=== PATIENT | male | born 1945 | race Caucasian/White ===

== ENCOUNTER 2016-12-26 20:23 | Emergency (ER) | payer MEDICARE, OTHER ==
[~2016-12-26] VITALS: Ht 182.9 cm; Wt 150.0 kg
[2016-12-26] MEDS ORDERED: ONDANSETRON HCL 4 MG/2 ML VIAL IVP ONE (20:45)
[2016-12-26] MEDS ORDERED: SODIUM CHLORIDE 0.9% FLUSH 10 ML FLUSH IV FLUSH PRN (20:45)
[2016-12-26] MEDS ORDERED: MORPHINE SULFATE 8 MG/ML INJ IV PUSH ONE (20:45)
--- NOTE | 2016-12-26 20:48 | PD ---
HPI Chief Complaint: Abdominal Pain Time Seen by Provider: 20:35 (Reinier Lynne) Time Seen by Provider: 20:49 (Shaylee Warren MD) Travel History International Travel<30 days: No Contact w/Intl Traveler<30days: No Traveled to known affect area: No (Reinier Lynne) History of Present Illness HPI 71-year-old male who is currently on vacation from [place], history of diabetes and hypertension, presents via EMS for evaluation of abdominal pain. He reports that for the past month he has had intermittent sharp pains on the right side of his abdomen lateral to the umbilicus. He reports that the pain became much severe over the past hour and this prompted evaluation. Pain comes and goes. He denies any flank pain, hematuria, testicular or scrotal pain, nausea or vomiting, diarrhea or constipation, chest pain or shortness of breath , fevers or chills. Denies any history of abdominal surgeries in the past. He has no other complaints at this time. (Reinier Lynne) [facility] Past Medical History Diabetes: Yes Patient Takes Glucophage: No Hypertension: Yes ?: Not (Reinier Lynne) Social History Alcohol Use: No Tobacco Use: No Substance Use: No (Reinier Lynne) Allergies-Medications (Allergen,Severity, Reaction): Coded Allergies: No Known Allergies (Unverified , 12/26/16) Reported Meds & Prescriptions Reported Meds & Active Scripts Active Percocet (Oxycodone-Acetaminophen) 5-325 mg Tab 1 Tab PO Q8HR NEB PRN Zofran (Ondansetron HCl) 4 Mg Tab 4 Mg PO Q8HR PRN Reported Losartan (Losartan Potassium) 100 Mg Tab 100 Mg PO DAILY Glipizide XL (Glipizide) 10 Mg Noelle 10 Mg PO DAILY Take with breakfast or first main meal of the day Janumet (Sitagliptin-Metformin) 50-500 Mg Tab 2 Tab PO HS (Shaylee Warren MD) Review of Systems Except as stated in HPI: all other systems reviewed are Neg (Reinier Lynne) Physical Exam Narrative GENERAL: This is a obese male who is in no acute distress. SKIN: Warm and dry. HEAD: Atraumatic. Normocephalic. EYES: Pupils equal and round. No scleral icterus. No injection or drainage. ENT: No nasal bleeding or discharge. Mucous membranes pink and moist. NECK: Trachea midline. No JVD. CARDIOVASCULAR: Regular rate and rhythm. No murmur appreciated. RESPIRATORY: No accessory muscle use. Clear to auscultation. Breath sounds equal bilaterally. GASTROINTESTINAL: Abdomen soft, some tenderness to palpation to the right side of the abdomen lateral to the umbilicus. There is no tenderness to palpation in the right lower quadrant over McBurney's point. There is no right upper quadrant tenderness. There is no guarding or palpable masses. No CVA tenderness. MUSCULOSKELETAL: No obvious deformities. No edema. NEUROLOGICAL: Awake and alert. No obvious cranial nerve deficits. Motor grossly within normal limits. Normal speech. PSYCHIATRIC: Appropriate mood and affect; insight and judgment normal. (Reinier Lynne) Data Data Last Documented VS Vital Signs Date Time Temp Pulse Resp B/P Pulse Ox O2 Delivery O2 Flow Rate FiO2 12/26/16 23:23 71 18 144/68 98 12/26/16 21:08 97.8 (Shaylee Warren MD) Orders Complete Blood Count With Diff (12/26/16 20:44) Comprehensive Metabolic Panel (12/26/16 20:44) Lipase (12/26/16 20:44) Urinalysis - C+S If Indicated (12/26/16 20:44) Ct Abd/Pel W Iv Contrast(Rout) (12/26/16 20:44) Iv Access Insert/Monitor (12/26/16 20:44) Ecg Monitoring (12/26/16 20:44) Oximetry (12/26/16 20:44) Ondansetron Inj (Zofran Inj) (12/26/16 20:45) Sodium Chloride 0.9% Flush (Ns Flush) (12/26/16 20:45) Electrocardiogram (12/26/16 20:44) Morphine Inj (Morphine Inj) (12/26/16 20:45) Ketorolac Inj (Toradol Inj) (12/26/16 22:45) Morphine Inj (Morphine Inj) (12/26/16 22:45) Sodium Chlor 0.9% 1000 Ml Inj (Ns 1000 M (12/26/16 22:35) Iohexol 350 Inj (Omnipaque 350 Inj) (12/26/16 22:42) Urine Culture (12/26/16 23:50) Ceftriaxone Inj (Rocephin Inj) (12/27/16 00:00) Blood Culture (12/26/16 23:56) Ciprofloxacin 400 Mg Premix (Cipro 400 M (12/27/16 00:00) Metronidazole 500 Mg Inj (Flagyl 500 Mg (12/27/16 00:00) (Shaylee Warren MD) Labs Laboratory Tests Test 12/26/16 12/26/16 21:22 23:16 White Blood Count 13.0 TH/MM3 Red Blood Count 5.54 MIL/MM3 Hemoglobin 15.2 GM/DL Hematocrit 45.8 % Mean Corpuscular Volume 82.7 FL Mean Corpuscular Hemoglobin 27.4 PG Mean Corpuscular Hemoglobin 33.1 % Concent Red Cell Distribution Width 15.5 % Platelet Count 243 TH/MM3 Mean Platelet Volume 9.0 FL Neutrophils (%) (Auto) % Lymphocytes (%) (Auto) % Monocytes (%) (Auto) % Eosinophils (%) (Auto) % Basophils (%) (Auto) % Neutrophils # (Auto) TH/MM3 Lymphocytes # (Auto) TH/MM3 Monocytes # (Auto) TH/MM3 Eosinophils # (Auto) TH/MM3 Basophils # (Auto) TH/MM3 CBC Comment AUTO DIFF Differential Total Cells 100 Counted Neutrophils % (Manual) 76 % Band Neutrophils % 1 % Lymphocytes % 15 % Monocytes % 6 % Eosinophils % 1 % Basophils % 1 % Neutrophils # (Manual) 10.0 TH/MM3 Differential Comment FINAL DIFF MANUAL Platelet Estimate NORMAL Platelet Morphology Comment NORMAL Red Cell Morphology Comment NORMAL Sodium Level 136 MEQ/L Potassium Level 4.2 MEQ/L Chloride Level 103 MEQ/L Carbon Dioxide Level 24.6 MEQ/L Anion Gap 8 MEQ/L Blood Urea Nitrogen 16 MG/DL Creatinine 1.25 MG/DL Estimat Glomerular Filtration 57 ML/MIN Rate Random Glucose 197 MG/DL Calcium Level 9.0 MG/DL Total Bilirubin 0.4 MG/DL Aspartate Amino Transf 19 U/L (AST/SGOT) Alanine Aminotransferase 25 U/L (ALT/SGPT) Alkaline Phosphatase 50 U/L Total Protein 7.8 GM/DL Albumin 3.6 GM/DL Lipase 145 U/L Urine Color YELLOW Urine Turbidity CLEAR Urine pH 5.5 Urine Specific [place] 1.045 Urine Protein TRACE mg/dL Urine Glucose (UA) 70 mg/dL Urine Ketones NEG mg/dL Urine Occult Blood NEG Urine Nitrite NEG Urine Bilirubin NEG Urine Urobilinogen LESS THAN 2.0 MG/DL Urine Leukocyte Esterase NEG Urine RBC LESS THAN 1 /hpf Urine WBC 1 /hpf Urine Squamous Epithelial <1 /hpf Cells Urine Bacteria RARE /hpf Urine Mucus FEW /lpf Microscopic Urinalysis Comment CULT NOT INDICATED (Shaylee Warren MD) [facility] Medical Decision Making Medical Screen Exam Complete: Yes Emergency Medical Condition: Yes Medical Record Reviewed: Yes Interpretation(s) EKG CBC CMP Lipase Urinalysis CT abdomen and pelvis Differential Diagnosis Abdominal hernia, appendicitis, obstruction, colitis, renal stone, mesenteric ischemia Narrative Course 71-year-old male on vacation from [place] with history of diabetes and hypertension presents with intermittent sharp pain in the right side of his abdomen for the past month, much worse over the past hour. On examination he has some tenderness to palpation lateral to the umbilicus in the right side of his abdomen. There are no palpable masses. He is somewhat obese with a BMI of 44.8. Plan is for basic lab work, EKG, ECG monitor and pulse oximetry, CT abdomen and pelvis. He will be Given IV morphine and Zofran. The patient's CT reveals no acute abnormalities, he does have diverticulosis. He feels improved after the second dose of morphine. At the end of my shift the urinalysis is pending, he is signed out to my attending to follow up on the urinalysis results, likely discharge home. (Reinier Lynne) Medical Screen Exam Complete: Yes Emergency Medical Condition: Yes Medical Record Reviewed: Yes Interpretation(s) CT scan of the abdomen and pelvis is negative for obstruction appendicitis kidney stone and evidence of diverticulosis UA shows rare blurred was negative for protein and leukocytes and nitrites Differential Diagnosis Differential diagnosis bacteriuria flank pain kidney stone appendicitis colitis diverticular disease obstruction constipation Narrative Course This is a 71-year-old obese male who's had abdominal pain located on the right side intermittently for some time who had an episode of increased severe pain today more than a 10 out of 10 patient hydrated with normal saline and given morphine and Zofran CTed of the abdomen and pelvis negative for stone structuring constipation (appendicitis colitis there was evidence of diverticulosis She is afebrile and nontoxic in appearance there is a leukocytosis of 13,000 Nae states he is pain free and is resting comfortably patient continued to be pain-free during the rest of the ED stay To the presence of diverticulosis and no other findings on CT scan and no evidence of bacteriuria gave patient a dose of Cipro and Flagyl patient to be on a clear liquid diet for 24 hours then to advance diet as tolerated Discharge home with Cipro and Flagyl and Percocet and Zofran able to tolerate oral intake to be discharged with follow-up with gastroenterology for colonoscopy and upper endoscopy and further management. ( Shaylee Warren MD) Procedures EKG Prior to Arrival: Yes (Reinier Lynne) Diagnosis Primary Impression: Abdominal pain Additional Impressions: Bacteria in urine leukocytosis Referrals: Faith Richard MD Patient Instructions: Clear Liquid Diet (DC), General Instructions, Narcotic given in the ED Additional Instructions: Stay well hydrated Clear liquid diet for 24 hours Take Percocet as needed for pain Take Zofran as needed for nausea Finished antibiotic With the addictions recovery specialist for further evaluation and colonoscopy Return if the pain reoccurred despite pain medicine for her vomiting decreased appetite bloody vomiting no blood in the stool Scripts Metronidazole (Flagyl)500 Mg [id number] Mg PO TID 10 Days Ref 0 Prov:Shaylee Warren MD 12/27/16 Ciprofloxacin (Cipro)500 Mg [id number] Mg PO BID 10 Days Ref 0 Prov:Shaylee Warren MD 12/27/16 Oxycodone-Acetaminophen (Percocet)5-325 mg Tab1 Tab PO Q8HR NEB PRN (PAIN) #15 TAB Ref 0 Prov:Shaylee Warren MD 12/27/16 Ondansetron (Zofran)4 Mg Tab4 Mg PO Q8HR PRN (NAUSEA OR VOMITING) #15 TAB Ref 0 Prov:Shaylee Warren MD 12/27/16 Disposition: 01 DISCHARGE HOME Reinier Lynne Dec 26, 2016 20:48 Shaylee Warren MD Dec 27, 2016 02:10 Platelet Morphology Comment NORMAL Red Cell Morphology Comment NORMAL Sodium Level 136 MEQ/L Potassium Level 4.2 MEQ/L Chloride Level 103 MEQ/L Carbon Dioxide Level 24.6 MEQ/L Anion Gap 8 MEQ/L Blood Urea Nitrogen 16 MG/DL Creatinine 1.25 MG/DL Estimat Glomerular Filtration 57 ML/MIN Rate Random Glucose 197 MG/DL Calcium Level 9.0 MG/DL Total Bilirubin 0.4 MG/DL Aspartate Amino Transf 19 U/L (AST/SGOT) Alanine Aminotransferase 25 U/L (ALT/SGPT) Alkaline Phosphatase 50 U/L Total Protein 7.8 GM/DL Albumin 3.6 GM/DL Lipase 145 U/L (Reinier Lynne) [facility] Medical Decision Making Medical Screen Exam Complete: Yes Emergency Medical Condition: Yes Medical Record Reviewed: Yes Interpretation(s) EKG CBC CMP Lipase Urinalysis CT abdomen and pelvis Differential Diagnosis Abdominal hernia, appendicitis, obstruction, colitis, renal stone, mesenteric ischemia Narrative Course 71-year-old male on vacation from [place] with history of diabetes and hypertension presents with intermittent sharp pain in the right side of his abdomen for the past month, much worse over the past hour. On examination he has some tenderness to palpation lateral to the umbilicus in the right side of his abdomen. There are no palpable masses. He is somewhat obese with a BMI of 44.8. Plan is for basic lab work, EKG, ECG monitor and pulse oximetry, CT abdomen and pelvis. He will be Given IV morphine and Zofran. The patient's CT reveals no acute abnormalities, he does have diverticulosis. He feels improved after the second dose of morphine. At the end of my shift the urinalysis is pending, he is signed out to my attending to follow up on the urinalysis results, likely discharge home. (Reinier Lynne) Medical Screen Exam Complete: Yes Emergency Medical Condition: Yes Medical Record Reviewed: Yes Interpretation(s) CT scan of the abdomen and pelvis is negative for obstruction appendicitis kidney stone and evidence of diverticulosis UA shows rare blurred was negative for protein and leukocytes and nitrites Differential Diagnosis Differential diagnosis bacteriuria flank pain kidney stone appendicitis colitis diverticular disease obstruction constipation Narrative Course This is a 71-year-old obese male who's had abdominal pain located on the right side intermittently for some time who had an episode of increased severe pain today more than a 10 out of 10 patient hydrated with normal saline and given morphine and Zofran CTed of the abdomen and pelvis negative for stone structuring constipation (appendicitis colitis there was evidence of diverticulosis She is afebrile and nontoxic in appearance there is a leukocytosis of 13,000 Nae states he is pain free and is resting comfortably patient continued to be pain-free during the rest of the ED stay To the presence of diverticulosis and no other findings on CT scan and no evidence of bacteriuria gave patient a dose of Cipro and Flagyl patient to be on a clear liquid diet for 24 hours then to advance diet as tolerated Discharge home with Cipro and Flagyl and Percocet and Zofran able to tolerate oral intake to be discharged with follow-up with gastroenterology for colonoscopy and upper endoscopy and further management. ( Shaylee Warren MD) Procedures EKG Prior to Arrival: Yes (Reinier Lynne) Diagnosis Primary Impression: Abdominal pain Additional Impressions: Bacteria in urine leukocytosis Referrals: Faith Richard MD Patient Instructions: Clear Liquid Diet (DC), General Instructions, Narcotic given in the ED Additional Instructions: Stay well hydrated Clear liquid diet for 24 hours Take Percocet as needed for pain Take Zofran as needed for nausea Finished antibiotic With the addictions recovery specialist for further evaluation and colonoscopy Return if the pain reoccurred despite pain medicine for her vomiting decreased appetite bloody vomiting no blood in the stool Scripts Metronidazole (Flagyl)500 Mg [id number] Mg PO TID 10 Days Ref 0 Prov:Shaylee Warren MD 12/27/16 Ciprofloxacin (Cipro)500 Mg [id number] Mg PO BID 10 Days Ref 0 Prov:Shaylee Warren MD 12/27/16 Oxycodone-Acetaminophen (Percocet)5-325 mg Tab1 Tab PO Q8HR NEB PRN (PAIN) #15 TAB Ref 0 Prov:Shaylee Warren MD 12/27/16 Ondansetron (Zofran)4 Mg Tab4 Mg PO Q8HR PRN (NAUSEA OR VOMITING) #15 TAB Ref 0 Prov:Shaylee Warren MD 12/27/16 Disposition: 01 DISCHARGE HOME Reinier Lynne Dec 26, 2016 20:48 Shaylee Warren MD Dec 27, 2016 02:10
[2016-12-26 21:08] VITALS: BP 148/60; PULSE 80; RESP 18; TEMP 97.8; O2SAT 96
[2016-12-26] MEDS ORDERED: JANU50TA4 PO (21:32)
[2016-12-26] MEDS ORDERED: GLIP10TA67 PO (21:33)
[2016-12-26] MEDS ORDERED: LOSA100T PO (21:33)
[2016-12-26 22:04] LABS: HEMATOCRIT 45.8 % (39.0-51.0); MEAN CELL VOLUME 82.7 FL (80.0-100.0); MEAN CORPUSCULAR HEMOGLOBIN 27.4 PG (27.0-34.0); MEAN CORPUSCULAR HGB CONC 33.1 % (32.0-36.0); PLATELET COUNT 243 TH/MM3 (150-450); RED BLOOD COUNT 5.54 MIL/MM3 (4.50-5.90); RED CELL DISTRIBUTION WIDTH 15.5 % (11.6-17.2)
[2016-12-26 22:05] LABS: HEMO FLAGS AUTO DIFF
[2016-12-26 22:16] LABS: ALT (GPT) 25 U/L (12-78); ANION GAP 8 MEQ/L (5-15); AST (GOT) 19 U/L (15-37); BICARBONATE 24.6 MEQ/L (21.0-32.0); BLOOD UREA NITROGEN 16 MG/DL (7-18); CHLORIDE 103 MEQ/L (98-107); GLOMERULAR FILTRATION RATE 57 ML/MIN (>89); POTASSIUM 4.2 MEQ/L (3.5-5.1); SODIUM (NA) 136 MEQ/L (136-145)
[2016-12-26 22:18] LABS: ALKALINE PHOSPHATASE 50 U/L (45-117); TOTAL BILIRUBIN ADULT 0.4 MG/DL (0.2-1.0)
[2016-12-26] MEDS ORDERED: SODIUM CHLOR 0.9% 1000 ML INJ 1,000 ML IV SCH (22:35)
[2016-12-26] MEDS ORDERED: IOHEXOL 350 MG/ML 10 ML VIAL (for RAD DIAG) IV ONE (22:42)
[2016-12-26 22:45] LABS: BANDS 1 % (0-6); BASOPHILS 1 % (0-2); EOSINOPHILS 1 % (0-4); PLATELET ESTIMATE SMEAR NORMAL (NORMAL); PLATELET MORPHOLOGY NORMAL (NORMAL); POLYS (SEG NEUTROPHILS) 76 % (16-70); SCAN/DIFF FINAL DIFF MANUAL; WBC DIFF SAMPLE 100
[2016-12-26] MEDS ORDERED: KETOROLAC TROMETHAMINE 30 MG/ML (IVP) VIAL IV PUSH ONE (22:45)
[2016-12-26] MEDS ORDERED: MORPHINE SULFATE 4 MG/ML INJ IV PUSH ONE (22:45)
--- NOTE | 2016-12-26 22:54 | RADRPT ---
EXAM DATE/TIME: 12/26/2016 22:30 [place] COMPARISON: No previous studies available for comparison. INDICATIONS : Right lower quadrant pain. IV CONTRAST: 100 cc Omnipaque 350 (iohexol) IV ORAL CONTRAST: No oral contrast ingested. RADIATION DOSE: 38.88 CTDIvol (mGy) MEDICAL HISTORY : Hypertension. Diabetes. SURGICAL HISTORY : None. ENCOUNTER: Initial ACUITY: 1 month PAIN SCALE: 10/10 LOCATION: Right lower quadrant TECHNIQUE: Volumetric scanning of the abdomen and pelvis was performed. Using automated exposure control and ad justment of the mA and/or kV according to patient size, radiation dose was kept as low as reasonably achievable to obtain optimal diagnostic quality images. DICOM format image data is available electro nically for review and comparison. FINDINGS: Lung bases are clear. Diffuse fatty liver. Spleen, adrenals, kidneys pancreas unremarkable. No calcif ied gallstones or biliary ductal dilatation. There is colonic diverticulosis without evidence for diverticulitis. No bowel obstruction. No free ai r or free fluid. No acute bony abnormalities. 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 CONCLUSION: 1. No acute findings. Colonic diverticulosis without diverticulitis. Fatty infiltration of the liver. Appendix normal on CT. No obstructive uropathy. Papo Salvador MD on December 26, 2016 at 22:47 Board Certified Radiologist. This report was verified electronically.
[2016-12-26 23:23] VITALS: BP 144/68; PULSE 71; RESP 18; O2SAT 98
[2016-12-26 23:30] LABS: BACTERIA, URINE RARE /hpf; BLOOD, URINE NEG (NEG); GLUCOSE,URINE 70 mg/dL (NEG); KETONE, URINE NEG (NEG); MUCUS URINE FEW /lpf (OCC); NITRITE,URINE NEG (NEG); PH, URINE 5.5 (5.0-8.5); SQUAMOUS EPITHELIAL CELL URINE <1 /hpf (0-5); URINE COLOR YELLOW (YELLW/STRAW)
[2016-12-26 23:31] LABS: COMMENT (UR) CULT NOT INDICATED; CULTURE IF INDICATED CULT NOT INDICATED
[2016-12-27] MEDS ORDERED: cefTRIAXone INJ 1,000 MG in SODIUM CHLORIDE 0.9% INJ 100 ML IV ONE ×2
[2016-12-27] MEDS ORDERED: CIPROFLOXACIN 400 MG PREMIX 200 ML IV ONE
[2016-12-27] MEDS ORDERED: metroNIDAZOLE 500 MG INJ 100 ML IV ONE
[2016-12-27] MEDS ORDERED: ZOFR4TAB PO (02:08)
[2016-12-27] MEDS ORDERED: PERC5TAB12 PO (02:08)
[2016-12-27] MEDS ORDERED: CIPR-9 PO (02:10)
[2016-12-27] MEDS ORDERED: METR-1 PO (02:10)
--- NOTE | 2016-12-27 17:41 | EKG ---
Date Performed: 12/26/2016 Time Performed: 20:32:23 PTAGE: 71 years EKG: Sinus rhythm NORMAL ECG NO PREVIOUS TRACING DOCTOR: Daniella Winston Interpretating Date/Time 12/27/2016 17:36:49
== END 2016-12-27 02:19 | disposition home or self-care (01) ==
LOC: NEPC 20:23
DX: R10.9 Unspecified abdominal pain (principal); R82.71 Bacteriuria; D72.829 Elevated white blood cell count, unspecified; K57.90 Diverticulosis of intestine, part unspecified, without perforation or abscess without bleeding; E11.9 Type 2 diabetes mellitus without complications; I10 Essential (primary) hypertension; B96.89 Other specified bacterial agents as the cause of diseases classified elsewhere; Z79.84 Long term (current) use of oral hypoglycemic drugs
CPT/HCPCS: 74177; 80053; 81001; 83690; 85007; 85027; 87040; 87086; 93005; 96361; 96365; 96366; 96368; 96375; 99285; J0696; J0744; J1885; J2270; J2405; J7030; Q9967